=== PATIENT | female | born 1965 | race African-American/Black ===

== ENCOUNTER 2016-05-26 17:55 | Emergency (ER) | payer BC ==
[~2016-05-26] VITALS: Ht 175.3 cm; Wt 66.2 kg
--- NOTE | ~2016-05-26 | EKG ---
[address] [address] ELECTROCARDIOGRAM REPORT Name: HENRIK SCHULTZ [id number] Admission: 05/26/16 Attend Phys: Discharge: 05/26/16 Date of : 69 Report #: [id number] THIS REPORT FOR: //name// [facility] ED Test Date: 2016-05-26 Test Time: 18:01:23 Pat Name: HENRIK SCHULTZ Department: Room: Gender: F Stenographer Secretary: JULIÁN : 1965 Requested By: Lotus Brown Order Number: [id number] MD: Anmol Segovia Measurements Intervals [place] Rate: 95 P: 73 SD: 126 QRS: 51 QRSD: 82 T: 41 QT: 348 QTc: 438 Interpretive Statements Sinus rhythm No significant abnormality No previous ECG available for comparison Electronically Signed On 05-28-2016 8:38:39 FUR DESIGNER by Anmol Segovia [email or web address] <ELECTRONICALLY SIGNED> By: Anmol Segovia MD, [facility] 05/28/16 0838 1801 180 Anmol Segovia MD, FACC /EPI
[~2016-05-26 17:55] MED LIST: DARVOCET-N 1001 EACH PO; PROAIR HFA8.5 GM IH
[2016-05-26 17:56] VITALS: BP 140/96
[2016-05-26 19:12] LABS: HEMATOCRIT 37.3 % (37.0-47.0); HEMOGLOBIN 12.3 gm/dL (12.0-15.0); MCH 30.7 pg (26.0-34.0); RBC 4.01 mil/uL (4.20-5.00); RDW 17.4 % (10.5-14.5); WBC 8.5 thou/uL (4.0-11.0)
[2016-05-26 19:16] LABS: ANION GAP 8 mmol/L (7-16); BUN 19 mg/dL (7-18); CALCIUM 9.8 mg/dL (8.5-10.1); CHLORIDE 102 mmol/L (98-107); CO2 32 mmol/L (21-32); CREATININE 1.1 mg/dL (0.6-1.3); GLUCOSE 113 mg/dL (70-99); SODIUM 142 mmol/L (136-145)
[2016-05-26] MEDS ORDERED: PREDNISONE 20 M20 MG PO (19:20)
[2016-05-26] MEDS ORDERED: VENTOLIN HFA 1818 GM INH (19:21)
[2016-05-26 19:25] LABS: TROPONIN-I < 0.04 ng/mL (<0.04-0.07)
[2016-05-26] MEDS ORDERED: PROMETHAZINE/C118 ML PO (21:09)
== END 2016-05-26 21:35 | disposition home or self-care (01) ==
LOC: ER 17:55
PROVIDERS: Physician Assistant
DX: J06.9 Acute upper respiratory infection, unspecified (principal); R06.09 Other forms of dyspnea; R05 Cough; I10 Essential (primary) hypertension; F41.9 Anxiety disorder, unspecified

== ENCOUNTER 2020-12-17 16:07 | Emergency (ER) | payer BC ==
[~2020-12-17] VITALS: Ht 177.8 cm; Wt 79.4 kg
[~2020-12-17 16:07] MED LIST changes: +PREDNISONE 20 M20 MG PO; +PROMETHAZINE/C118 ML PO; +VENTOLIN HFA 1818 GM INH
[2020-12-17 16:28] LABS: ABSOLUTE NEUTROPHILS 1.9 thou/uL (1.4-8.2); BASOPHILS 0.5 % (0.0-2.0); EOSINOPHILS 0.5 % (0.0-3.0); HEMATOCRIT 43.9 % (37.0-47.0); HEMOGLOBIN 14.8 gm/dL (12.0-15.0); LYMPHOCYTES 51.5 % (24.0-44.0); MCHC 33.6 g/dL (28.0-37.0); MCV 98.2 fL (80.0-100.0); PLATELET COUNT 305 thou/uL (150-400); POLYS 37.5 % (36.0-66.0); RBC 4.47 mil/uL (4.20-5.00); RDW 17.3 % (10.5-14.5); WBC 5.1 thou/uL (4.0-11.0)
[2020-12-17 16:31] LABS: URINE BILIRUBIN NEGATIVE (Negative); URINE BLOOD NEGATIVE (Negative); URINE CLARITY CLEAR; URINE COLOR YELLOW; URINE GLUCOSE-RANDOM* NEGATIVE (Negative); URINE KETONES NEGATIVE (Negative); URINE LEUKOCYTES-REFLEX NEGATIVE (Negative); URINE NITRITE-REFLEX NEGATIVE (Negative); URINE PROTEIN (DIPSTICK) 1+ (Negative); URINE UROBILINOGEN 0.2 E.U./dl (0.2-1.0)
[2020-12-17 16:37] LABS: ANION GAP 11 mmol/L (7-16); BUN 11 mg/dL (7-18); CALCIUM 9.1 mg/dL (8.5-10.1); CHLORIDE 105 mmol/L (98-107); CO2 24 mmol/L (21-32); GLUCOSE 124 mg/dL (74-106); POTASSIUM 3.6 mmol/L (3.5-5.1); SODIUM 140 mmol/L (136-145)
[2020-12-17 16:40] LABS: AMP/METHAMP Negative (Negative); BARBITURATES Negative (Negative); BENZODIAZEPINES POSITIVE (Negative); COCAINE Negative (Negative); METHADONE Negative (Negative); OPIATES Negative (Negative); PCP Negative (Negative)
[2020-12-17 16:44] LABS: ALBUMIN 4.1 g/dL (3.4-5.0); SALICYLATE < 2.8 mg/dL (2.8-20.0); SGOT 63 U/L (15-37); SGPT 48 U/L (14-59); TOTAL BILIRUBIN 0.4 mg/dL (0.2-1.0); TOTAL PROTEIN 7.8 g/dL (6.4-8.2); TROPONIN-I <0.06 ng/mL (<0.06)
[2020-12-17 16:44] LABS: MUCUS >6 Heavy strn/LPF (None Seen)
[2020-12-17 16:45] LABS: CASTS None Seen /LPF (None Seen); SQUAMOUS None Seen /LPF (0-3)
[2020-12-17 16:46] LABS: AMORPHOUS URATES Few /LPF (None Seen); BACTERIA-REFLEX None Seen /HPF (None Seen); URINE RBC 1-2 Rare /HPF (NONE SEEN); URINE WBC-REFLEX None Seen /HPF (0-5)
[2020-12-17] MEDS ORDERED: LORAZEPAM 1 MG T1 MG PO (17:06)
[2020-12-17] MEDS ORDERED: CLONIDINE HCL0.1 M1 PO (17:07)
[2020-12-17] MEDS ORDERED: QUETIAPINE FUM100 MG PO (17:07)
[2020-12-17] MEDS ORDERED: BUSPIRONE HCL10 MG PO (17:07)
[2020-12-17] MEDS ORDERED: K-DUR 20 MEQ T20 MEQ PO (17:08)
[2020-12-17] MEDS ORDERED: CLONIDINE HCL0.1 MG PO (17:08)
[2020-12-17] MEDS ORDERED: MIRTAZAPINE15 M2 PO (17:09)
[2020-12-17] MEDS ORDERED: TRAZODONE HCL50 MG PO (17:09)
[2020-12-17] MEDS ORDERED: INDERAL40 MG PO (17:09)
[2020-12-17] MEDS ORDERED: LORAZEPAM 0.50.5 MG PO (17:09)
[2020-12-17] MEDS ORDERED: NEURONTIN 300M300 M2 PO (17:09)
[2020-12-17] MEDS ORDERED: NARCAN4 MG NARES (17:09)
[2020-12-18 06:47] VITALS: BP 153/69
--- NOTE | 2020-12-18 07:23 | EKG ---
[address] [address] ELECTROCARDIOGRAM REPORT Name: HENRIK SCHULTZ Room #: [facility] [id number] Admission: 12/17/20 Attend Phys: Discharge: Date of : 69 Report #: [id number] [facility] ED Test Date: 2020-12-17 Test Time: 16:44:17 Pat Name: HENRIK SCHULTZ Department: Room: Gender: F Rn Palliative: vesta : 1965 Requested By: Braulio Carmona Order Number: [id number] MD: Abel Terrell Measurements Intervals [place] Rate: 113 P: 65 [place]: 132 QRS: 13 QRSD: 82 T: 36 QT: 339 QTc: 465 Interpretive Statements Sinus tachycardia Compared to ECG 05/26/2016 18:01:23 Sinus rhythm no longer present Electronically Signed On 12-18-2020 7:23:38 CDT by Abel Terrell [email or web address] <ELECTRONICALLY SIGNED> By: Abel Terrell MD, [facility] WITH [facility] 12/18/20 0723 1644 1644 Abel Terrell MD, FACC /EPI
== END 2020-12-18 07:03 | disposition home or self-care (01) ==
LOC: ER 16:07
PROVIDERS: Emergency Medicine
DX: U07.1 COVID-19 (principal); F10.129 Alcohol abuse with intoxication, unspecified; T42.4X1A Poisoning by benzodiazepines, accidental (unintentional), initial encounter; I10 Essential (primary) hypertension; F41.9 Anxiety disorder, unspecified; Z90.89 Acquired absence of other organs; Z79.51 Long term (current) use of inhaled steroids; Z79.899 Other long term (current) drug therapy; Y92.89 Other specified places as the place of occurrence of the external cause